=== PATIENT | male | born 1980 | race Caucasian/White ===

== ENCOUNTER 2024-04-17 02:19 | Emergency (ER) | payer OTHER ==
[2024-04-17 02:24] VITALS: RESP 18; TEMP 98.3
[2024-04-17] MEDS: MORPHINE SULFATE 4 MG/ML SYRINGE IVP STA (02:51)
[2024-04-17] MEDS: ONDANSETRON 4 MG/2 ML VIAL IVP STA (02:51)
[2024-04-17] MEDS: SODIUM CHLORIDE 0.9% 1,000 ML IV STA (02:53)
[2024-04-17 03:22] LABS: ALT 29 U/L (4-49); AST 24 U/L (17-59); African American GFR (CKD) >90 (>60 ml/min/1.73 sqM); Albumin 4.4 g/dL (3.5-5.0); Alkaline Phosphatase 110 U/L (38-126); Amylase 67 U/L (30-110); Anion Gap 6 mmol/L; Blood Urea Nitrogen 19 mg/dL (9-20); Calcium 9.6 mg/dL (8.4-10.2); Carbon Dioxide 25 mmol/L (22-30); Chloride 105 mmol/L (98-107); Glucose 102 mg/dL (74-99); Lipase 99 U/L (23-300); Non-African American GFR(CKD) 82 (>60 ml/min/1.73 sqM); Potassium 4.4 mmol/L (3.5-5.1); Sodium 136 mmol/L (137-145); Total Bilirubin 0.5 mg/dL (0.2-1.3); Total Protein 6.9 g/dL (6.3-8.2)
[2024-04-17] MEDS: HYDROmorphone 0.5 MG/0.5 ML SYRINGE IVP STA (03:23)
[2024-04-17 03:25] LABS: Basophils % (A) 0 %; Eosinophils # (A) 0.2 k/uL (0-0.7); Eosinophils % (A) 1 %; HCT 47.6 % (39.0-53.0); HGB 16.4 gm/dL (13.0-17.5); Lymphocytes # (A) 1.3 k/uL (1.0-4.8); Lymphocytes % (A) 10 %; MCH 32.6 pg (25.0-35.0); MCHC 34.4 g/dL (31.0-37.0); MCV 94.7 fL (80.0-100.0); Mean Platelet Volume 7.8; Monocytes # (A) 0.6 k/uL (0-1.0); Monocytes % (A) 4 %; Neutrophils # (A) 10.6 k/uL (1.3-7.7); Neutrophils % (A) 83 %; Platelet Count 238 k/uL (150-450); RBC 5.03 m/uL (4.30-5.90); WBC 12.8 k/uL (3.8-10.6)
--- NOTE | 2024-04-17 03:36 | CT ---
EXAMINATION TYPE: CT abdomen pelvis wo con, CT lumbar spine wo con DATE OF EXAM: 04/17/2024 HISTORY: Right side back and abdominal pain CT DLP: 1300.5 mGycm. Automated Exposure Control for Dose Reduction was Utilized. TECHNIQUE: CT scan of the abdomen and pelvis is performed without oral or IV contrast. CT lumbar spi ne without contrast. COMPARISON: NONE FINDINGS: Within the limitations of a non-contrast study, the following observations are made. Lumbar spine: There are 5 lumbar type vertebra. Lumbar spine shows slight levoconvex scoliotic curvat ure centered at L2-L3 level. There is no acute fracture or dislocation. Vertebral body heights are ma intained. Multilevel fairly moderate disc space narrowing is seen with relative sparing of L2-L3 leve l. Posterior spur disc complexes efface the anterior thecal sac at L1-L2 and L4-L5 levels. Axial imag es show some mild facet arthropathy in the lower lumbar spine. LUNG BASES: No significant abnormality is appreciated. LIVER/GB: No significant abnormality is appreciated. PANCREAS: Moderate Generalized atrophy. SPLEEN: No significant abnormality is seen. ADRENALS: No significant abnormality is seen. KIDNEYS: There is 3mm nonobstructing calculus mid pole of the right kidney image 71. No left-sided hy dronephrosis and ureteral calculi. Moderately distended bladder calculus. BOWEL: Moderate to severe fecal prominence in the rectum. No abnormal small or large bowel dilatation . Mild to moderate fecal prominence in the right and proximal one half transverse colon. GENITAL ORGANS: No gross abnormality seen. LYMPH NODES: No greater than 1cm abdominal or pelvic lymph nodes are appreciated. OSSEOUS STRUCTURES: Mild to moderate multilevel spurring and disc space narrowing in the thoracolumba r spine. OTHER: Small to moderate-sized fat-containing umbilical hernia sagittal image 64. IMPRESSION: 1. No acute findings in the lumbar spine are present. 2. There is 3 mm nonobstructing calculus right kidney. No hydronephrosis or obstructing urinary calcu susana seen bilaterally. There is mild to moderate proximal colonic fecal stasis or constipation. There is moderate to severe distal colonic fecal stasis or constipation. No bowel obstruction. No acute fin dings otherwise seen. [facility], , 04/17/2024 3:33 AM
[2024-04-17 03:58] LABS: Appearance,Urine Clear (Clear); Bilirubin,Urine Negative (Negative); Blood,Urine Negative (Negative); Color,Urine Colorless; Glucose,Urine (UA) Negative (Negative); Ketones,Urine Negative (Negative); Leukocyte Esterase,Urine Negative (Negative); Nitrite,Urine Negative (Negative); PH, Urine 5.5 (5.0-8.0); Protein,Urine Negative (Negative); Specific Gravity,Urine 1.015 (1.001-1.035); Urobilinogen,Urine <2.0 mg/dL (<2.0)
[2024-04-17 04:50] VITALS: BP 152/90; PULSE 80
--- NOTE | 2024-04-17 04:52 | ED ---
General Adult HPI - General Chief complaint: Abdominal Pain Stated complaint: abd pain Time Seen by Provider: 04/17/24 02:20 Source: patient, RN notes reviewed, old records reviewed Mode of arrival: ambulatory Limitations: no limitations - History of Present Illness Initial comments: Patient is a 43-year-old male who presents emergency department complaining of abdominal and back pain. States that started at approximately noon yesterday and continued today. Has a history of kidney stones but states this feels slightly different. More intense pain. Does not radiate around the flank like prior kidney stones. States he may be constipated as well. Mild nausea with the pain. No chest pain or shortness of breath. No cardiac history. Has no other acute complaints at this time. Presents for further evaluation at this time. - Related Data Previous Rx's Medication Instructions Recorded Docusate Sodium 100 mg PO DAILY 14 Days #14 cap 04/17/24 Allergies Allergy/AdvReac Type Severity Reaction Status Date / Time No Known Allergies Allergy Verified 04/17/24 02:24 Review of Systems ROS Statement: Those systems with pertinent positive or pertinent negative responses have been documented in the HPI. Review of Systems: CONST: Denies fever EYES: Denies blurry vision ENT: Denies nasal congestion C/V: Denies Chest pain RESP: Denies shortness of breath GI: Endorses abdominal pain, back pain : Denies dysuria SKIN: Denies rash. MSK: Denies joint pain. NEURO: Denies headache ROS Other: All systems not noted in ROS Statement are negative. Past Medical History Additional Past Medical History / Comment(s): kidney stones History of Any Multi-Drug Resistant Organisms: None Reported Past Surgical History: No Surgical Hx Reported Past Psychological History: Anxiety, Depression Smoking Status: Never smoker Past Alcohol Use History: None Reported Past Drug Use History: Marijuana General Exam - General Exam Comments Initial Comments: General: Appears in moderate distress secondary to pain HEAD: Normal with no signs of head trauma. EYES: EOMI ENT: Hearing grossly intact, normal oropharynx. RESPIRATORY: Clear breath sounds bilaterally. No wheezes, rales, or rhonchi. C/V: Regular rate and rhythm. S1 and S2 auscultated, peripheral pulses 2+ and intact throughout ABD: Abdomen soft, nondistended. Mildly tender to palpation over the right flank. Tenderness to palpation of the right CVA. No guarding or rebound tenderness. No peritoneal signs. No palpable mass. EXT: Normal range of motion, no obvious deformity SKIN: No rashes or lesions observed on exposed skin. NEURO: Alert and oriented x 4. Limitations: no limitations Course Vital Signs 04/17/24 04/17/24 02:22 04:45 Temperature 98.3 F Pulse Rate 91 80 Respiratory 18 18 Rate Blood Pressure 160/98 152/90 O2 Sat by Pulse 98 98 Oximetry Medical Decision Making - Medical Decision Making Was pt. sent in by a medical professional or institution (, PA, STEAM TANK OPERATOR, urgent care, hospital, or [facility]...) When possible be specific @ -No Did you speak to anyone other than the patient for history (EMS, parent, family, police, friend...)? What history was obtained from this source @ -No Did you review nursing and triage notes (agree or disagree)? Why? @ -I reviewed and agree with nursing and triage notes Were old charts reviewed (outside hosp., previous admission, EMS record, old EKG, old radiological studies, urgent care reports/EKG's, [facility] records)? Report findings @ -No old charts were reviewed Differential Diagnosis (chest pain, altered mental status, abdominal pain women, abdominal pain men, vaginal bleeding, weakness, fever, dyspnea, syncope, headache, dizziness, GI bleed, back pain, seizure, CVA, palpatations, mental health, musculoskeletal)? @ -Differential Abdominal Pain Men: Appendicitis, cholecystitis, diverticulosis, ischemic bowel, pancreatitis, hepatitis, UTI, gastroenteritis, AAA, incarcerated hernia, bowel obstruction, constipation, inflammatory bowel, hepatitis, peptic ulcer disease, splenic infarction, perforated viscus, testicular torsion, this is not meant to be an all-inclusive list EKG interpreted by me (3pts min.). @ -As above X-rays interpreted by me (1pt min.). @ -None done CT interpreted by me (1pt min.). @ -CT without contrast of the abdomen pelvis shows constipation but no other obvious acute finding. CT lumbar spine unremarkable.CT angiogram of the abdomen pelvis reveals the constipation but no evidence of aortic injury or dissection. U/S interpreted by me (1pt. min.). @ -None done What testing was considered but not performed or refused? (CT, X-rays, U/S, labs)? Why? @ -None What meds were considered but not given or refused? Why? @ -None Did you discuss the management of the patient with other professionals (professionals i.e. , PA, STEAM TANK OPERATOR, lab, RT, psych nurse, social secretary, rrts, teacher, animal control officer, bottle caser)? Give summary @ -No Was smoking cessation discussed for >3mins.? @ -No Was critical care preformed (if so, how long)? @ -No Were there social determinants of health that impacted care today? How? (Homelessness, low income, unemployed, alcoholism, drug addiction, transportation, low edu. Level, literacy, decrease access to med. care, snf, rehab)? @ -No Was there de-escalation of care discussed even if they declined (Discuss DNR or withdrawal of care, Hospice)? DNR status @ -No What co-morbidities impacted this encounter? (DM, HTN, Smoking, COPD, CAD, Cancer, CVA, ARF, Chemo, Hep., AIDS, mental health diagnosis, sleep apnea, m orbid obesity)? @ -None Was patient admitted / discharged? Hospital course, mention meds given and route, prescriptions, significant lab abnormalities, going to OR and other pertinent info. @ -Patient presents with right-sided back and abdominal pain. We will obtain abdominal labs, as well as CT imaging with start. Patient was in agreement this plan. Patient will be symptomatically treat with IV analgesia medications, fluids, Zofran. Laboratory studies remarkable for clean urine. Mild leukocytosis of 12 which is likely reactive. Remainder the workup unremarkable including normal lactic acid. On reevaluation, pain is improved however I did recommend we obtain CT angiogram of the abdomen pelvis at this time and he was in agreement with this plan. CT angiogram of the abdomen pelvis reveals the constipation but no evidence of aortic injury or dissection. I updated the patient. Diagnosis constipation. He did elect to receive enema here in the department. We discussed high-fiber diet. He will be given an enema and reevaluated. Patient has had a successful bowel movement. He will be discharged home at this time. We discussed high-fiber diet, use of stool softeners which I will provide him with, as well as obtaining MiraLAX [id number] to use every day. He expressed understanding. He will be given gastroenterology for follow-up as needed. Recommend follow-up with his PCP in the next 1 to 3 days. Return if worsening symptoms. I will provide the patient with a prescription for docusate. I instructed the patient to follow up with their PCP in the next 1-3 days. I provided contact information for follow up with gastroenterology. I explained that the patient should return to the emergency department if they experience any worsening symptoms. Strict return precautions were discussed with the patient. The patient expressed understanding of these instructions. I answered all questions that the patient had. The patient was discharged home in good condition with their prescriptions and follow up information. Undiagnosed new problem with uncertain prognosis? @ -No Drug Therapy requiring intensive monitoring for toxicity (Heparin, Nitro, Insulin, Cardizem)? @ -No Were any procedures done? @ -No Diagnosis/symptom? @ -Constipation Acute, or Chronic, or Acute on Chronic? @ -Acute Uncomplicated (without systemic symptoms) or Complicated (systemic symptoms)? @ -uncomplicated Side effects of treatment? @ -None Exacerbation, Progression, or Severe Exacerbation] @ -No Poses a threat to life or bodily function? @ -Unlikely - Lab Data Result diagrams: 04/17/24 02:38 04/17/24 02:38 Lab Results 04/17/24 04/17/24 04/17/24 Range/Units 02:38 02:38 02:38 WBC 12.8 H (3.8-10.6) k/uL RBC 5.03 (4.30-5.90) m/uL Hgb 16.4 (13.0-17.5) gm/dL Hct 47.6 (39.0-53.0) % MCV 94.7 (80.0-100.0) fL MCH 32.6 (25.0-35.0) pg MCHC 34.4 (31.0-37.0) g/dL RDW 13.0 (11.5-15.5) % Plt Count 238 (150-450) k/uL MPV 7.8 Neutrophils % 83 % Lymphocytes % 10 % Monocytes % 4 % Eosinophils % 1 % Basophils % 0 % Neutrophils # 10.6 H (1.3-7.7) k/uL Lymphocytes # 1.3 (1.0-4.8) k/uL Monocytes # 0.6 (0-1.0) k/uL Eosinophils # 0.2 (0-0.7) k/uL Basophils # 0.0 (0-0.2) k/uL Sodium 136 L (137-145) mmol/L Potassium 4.4 (3.5-5.1) mmol/L Chloride 105 (98-107) mmol/L Carbon Dioxide 25 (22-30) mmol/L Anion Gap 6 mmol/L BUN 19 (9-20) mg/dL Creatinine 1.09 (0.66-1.25) mg/dL Est GFR (CKD-EPI)AfAm >90 (>60 ml/min/1.73 sqM) Est GFR (CKD-EPI)NonAf 82 (>60 ml/min/1.73 sqM) Glucose 102 H (74-99) mg/dL Plasma Lactic Acid Obey 1.5 (0.7-2.0) mmol/L Calcium 9.6 (8.4-10.2) mg/dL Total Bilirubin 0.5 (0.2-1.3) mg/dL AST 24 (17-59) U/L ALT 29 (4-49) U/L Alkaline Phosphatase 110 (38-126) U/L Total Protein 6.9 (6.3-8.2) g/dL Albumin 4.4 (3.5-5.0) g/dL Amylase 67 (30-110) U/L Lipase 99 (23-300) U/L Urine Color Urine Appearance (Clear) Urine pH (5.0-8.0) Ur Specific Colony (1.001-1.035) Urine Protein (Negative) Urine Glucose (UA) (Negative) Urine Ketones (Negative) Urine Blood (Negative) Urine Nitrite (Negative) Urine Bilirubin (Negative) Urine Urobilinogen (<2.0) mg/dL Ur Leukocyte Esterase (Negative) 04/17/24 Range/Units 03:52 WBC (3.8-10.6) k/uL RBC (4.30-5.90) m/uL Hgb (13.0-17.5) gm/dL Hct (39.0-53.0) % MCV (80.0-100.0) fL MCH (25.0-35.0) pg MCHC (31.0-37.0) g/dL RDW (11.5-15.5) % Plt Count (150-450) k/uL MPV Neutrophils % % Lymphocytes % % Monocytes % % Eosinophils % % Basophils % % Neutrophils # (1.3-7.7) k/uL Lymphocytes # (1.0-4.8) k/uL Monocytes # (0-1.0) k/uL Eosinophils # (0-0.7) k/uL Basophils # (0-0.2) k/uL Sodium (137-145) mmol/L Potassium (3.5-5.1) mmol/L Chloride (98-107) mmol/L Carbon Dioxide (22-30) mmol/L Anion Gap mmol/L BUN (9-20) mg/dL Creatinine (0.66-1.25) mg/dL Est GFR (CKD-EPI)AfAm (>60 ml/min/1.73 sqM) Est GFR (CKD-EPI)NonAf (>60 ml/min/1.73 sqM) Glucose (74-99) mg/dL Plasma Lactic Acid Obey (0.7-2.0) mmol/L Calcium (8.4-10.2) mg/dL Total Bilirubin (0.2-1.3) mg/dL AST (17-59) U/L ALT (4-49) U/L Alkaline Phosphatase (38-126) U/L Total Protein (6.3-8.2) g/dL Albumin (3.5-5.0) g/dL Amylase (30-110) U/L Lipase (23-300) U/L Urine Color Colorless Urine Appearance Clear (Clear) Urine pH 5.5 (5.0-8.0) Ur Specific Colony 1.015 (1.001-1.035) Urine Protein Negative (Negative) Urine Glucose (UA) Negative (Negative) Urine Ketones Negative (Negative) Urine Blood Negative (Negative) Urine Nitrite Negative (Negative) Urine Bilirubin Negative (Negative) Urine Urobilinogen <2.0 (<2.0) mg/dL Ur Leukocyte Esterase Negative (Negative) - EKG Data -: EKG Interpreted by Me EKG Comments: 12-lead Electrocardiogram Interpretation Note EKG was reviewed and interpreted by myself. 12-lead ECG performed at 0241 is interpreted by me as revealing normal sinus rhythm at a rate of 80 beats per minute. Mora is normal. LA interval is 140 ms, QRS duration is 90 ms, QTc is 384 ms.. There were no ST or T wave abnormalities to suggest myocardial is chemia or injury. R wave progression across the precordium was satisfactory. By my interpretation this EKG is non-diagnostic for acute ischemia. Disposition Clinical Impression: Constipation Disposition: HOME SELF-CARE Condition: Good Instructions (If sedation given, give patient instructions): Constipation (DC), High Fiber Diet (ED) Additional Instructions: You are constipated. Use MiraLAX on a daily basis. Start a high-fiber diet. Use stool softeners as needed. Use enemas and suppositories as needed. Follow- up with gastroenterology as needed. Follow-up with your PCP in the next 1 to 3 days. Prescriptions: Docusate Sodium 100 mg PO DAILY 14 Days #14 cap Is patient prescribed a controlled substance at d/c from ED?: No Referrals: Jessica Moffett MD [Primary Care Provider] - 1-2 days Time of Disposition: 05:55
--- NOTE | 2024-04-17 04:54 | CT ---
EXAMINATION TYPE: CT angio abdomen pelvis DATE OF EXAM: 04/17/2024 COMPARISON: Prior noncontrast CT earlier today HISTORY: right lower back pain/constipation CT DLP: 1066.1 mGycm, Automated Exposure Control for Dose Reduction was Utilized. CONTRAST: CTA scan of the abdomen and pelvis is performed without oral and with IV Contrast, patient injected w ith 100 mL of Isovue 370. Three-D reconstructed images are created on an independent workstation revi ewed FINDINGS: VASCULAR: Satisfactory enhancement of the aorta along with celiac artery, SMA, and OLENA. Bilateral sin gle renal arteries. No linear hypodensity to suggest dissection. Satisfactory enhancement of the hazel c and femoral arteries. No AAA. No significant plaque or stenosis. LUNG BASES: No significant abnormality is appreciated. LIVER/GB: No significant abnormality is appreciated. PANCREAS: Moderate Generalized atrophy redemonstrated. SPLEEN: No significant abnormality is seen. ADRENALS: No significant abnormality is seen. KIDNEYS: No hydronephrosis seen bilaterally. Mild to moderately distended bladder redemonstrated BOWEL: Moderate to severe fecal prominence in the rectum is again seen. No abnormal small or large marisa wel dilatation. Mild to moderate fecal prominence in the right and proximal one half transverse colon is redemonstrated. GENITAL ORGANS: No gross abnormality seen. LYMPH NODES: No greater than 1cm abdominal or pelvic lymph nodes are appreciated. OSSEOUS STRUCTURES: Mild to moderate multilevel spurring and disc space narrowing in the thoracolumba r spine. OTHER: Small to moderate-sized fat-containing umbilical hernia sagittal image 107. IMPRESSION: No aortic dissection or aneurysm. No acute vascular abnormality. Colonic constipation re demonstrated. No bowel obstruction is seen. [facility], , 04/17/2024 4:52 AM
[2024-04-17] MEDS ORDERED: MINERAL OIL 133 ML ENEMA RECTAL STA (05:24)
[2024-04-17] MEDS: NA PHOS,M-B/NA PHOS,DI-BA 133 ML ENEMA RECTAL ONE (05:47)
[2024-04-17] MEDS: KETOROLAC 15 MG/ML 1 ML VIAL IVP STA (07:02)
== END 2024-04-17 07:20 | disposition home or self-care (01) ==
LOC: EC 02:19
DX: K59.00 Constipation, unspecified (principal)
CPT/HCPCS: 36415; 93005; 80053; 82150; 83605; 83690; 85025; 81003; 72131; 74176; 74174; 99285; 96374; 96375 ×2; 96361; J2270; J2405; J1171; Q9967